=== PATIENT | female | born 1965 | race Caucasian/White ===

== ENCOUNTER 2016-07-30 15:47 | Emergency (ER) | payer OTHER ==
[2016-07-30 15:53] VITALS: PULSE 76; RESP 16
--- NOTE | 2016-07-30 15:58 | EDPHY ---
H & P Stated Complaint: palpitations since last Time Seen by Provider: 07/30/16 15:55 HPI/ROS: CHIEF COMPLAINT: Palpitations. HISTORY OF PRESENT ILLNESS: The patient is a 51-year-old female who presents with intermittent palpitations for the past 5 days. She first noticed the palpitations on while driving but they were mild and have been worsening since then. She feels that her heart is beating harder than usual and is irregular. The episodes can last 3 minutes to an hour. She admits associated nausea and throat tightness. The palpitations are alleviated with exercise. She denies syncope, chest pain, recent sickness, numbness, weakness, paresthesias, fever, chills, shortness of breath, vomiting, diarrhea, urinary complaints, headache, lightheadedness. She has been under a lot of stress lately. REVIEW OF SYSTEMS: Aside from elements discussed in the HPI, a comprehensive 10-point review of systems was reviewed and is negative. PAST MEDICAL HISTORY: C-sections x2. SOCIAL HISTORY: Lives in [place], nonsmoker, social alcohol use. VITAL SIGNS: Reviewed by me GENERAL: Well-developed, well-nourished, resting comfortably in no respiratory distress. HEENT: Atraumatic. Eyes: No icterus, no injection. Mouth: moist mucous membranes. No erythema or lesions. Neck: supple with no adenopathy. LUNGS: Clear to auscultation bilaterally, no wheezes, rhonchi or rales. CARDIAC: Regular rate and rhythm, no rubs, murmurs or gallops. ABDOMEN: Soft, nontender, nondistended, bowel sounds normal. BACK: No CVA tenderness. EXTREMITIES: No trauma. No edema. Range of motion is normal throughout. NEURO: Alert and oriented, grossly nonfocal. SKIN: Warm and dry, no rash. PSYCHIATRIC: Normal mentation, no agitation. Portions of this note were transcribed by a medical record transcriber. I personally performed a history, physical exam, medical decision making, and confirmed accuracy of information the transcribed note. Source: Patient Exam Limitations: No limitations - Personal History LMP (Females 10-55): Post Menopausal Current Tetanus/Diphtheria Vaccine: Yes - Medical/Surgical History Hx Asthma: No Hx Chronic Respiratory Disease: No Hx Diabetes: No Hx Cardiac Disease: No Hx Renal Disease: No Hx Cirrhosis: No Hx Alcoholism: No Hx HIV/AIDS: No Hx Splenectomy or Spleen Trauma: No Other PMH: denies - Social History Smoking Status: Never smoked Constitutional: Initial Vital Signs Temperature (C) 36.5 C 07/30/16 15:52 Heart Rate 76 07/30/16 15:52 Respiratory Rate 16 07/30/16 15:52 Blood Pressure 122/70 H 07/30/16 15:52 O2 Sat (%) 97 07/30/16 15:52 O2 Delivery Mode Room Air Allergies/Adverse Reactions: No Known Allergies Allergy (Verified 07/30/16 15:50) Home Medications: Medication Instructions Recorded NK [No Known Home Meds] 07/30/16 Medical Decision Making - Diagnostics EKG Interpretation: 12-LEAD EKG: Please see the full report in [facility]. My interpretation: Normal sinus rhythm ED Course/Re-evaluation: 51-year-old female with no prior cardiac history presents with intermittent palpitations since . She has no chest pain or shortness of breath. Her exam is normal. She has been placed on a tight cooper. During my exam I did notice 1 PVC on the monitor. An IV was established and labs ordered. EKG, ordered. Labwork unremarkable for acute abnormality. 1655: Consulted with Dr. Whitmore, cardiology. Her office will call the patient to set up Holter Monitoring and provide reevaluation. Precautions provided. Patient comfortable with plan. Differential Diagnosis: Differential diagnoses for the patient's sensation of palpitations was considered including but not limited to sinus tachycardia, PACs, PVCs, SVT, atrial fibrillation, atrial flutter, anxiety, panic attack. - Data Points Laboratory Results: Laboratory Results 07/30/16 16:00 07/30/16 16:00 Medications Given: Discontinued Medications Sodium Chloride (Ns) 1,000 mls @ 0 mls/hr IV ONCE ONE PRN Reason: Wide Open Stop: 07/30/16 16:47 Last Admin: 07/30/16 17:00 Dose: 1,000 mls Departure - Departure Disposition: Home, Routine, Self-Care Clinical Impression: Palpitations Condition: Good Instructions: Palpitations (ED) Additional Instructions: The office of Dr. Whitmore, cardiology, will call you to set up Holter Monitor. You have been provided her telephone number if you do not hear from the office. Return for any serious worsening of condition. Referrals: Christie Saldaña MD [Primary Care Provider] - As per Instructions Bria Whitmore MD [Medical Doctor] - As per Instructions Report Scribed for: Morena Fraser Report Scribed by: Hernandez Squires Date of Report: 07/30/16 Time of Report: 15:56
--- NOTE | 2016-07-30 16:01 | CPEKG ---
Heart Rate: 66 RR Interval: 909 P-R Interval: 140 QRSD Interval: 86 QT Interval: 396 QTC Interval: 415 P [place]: 71 QRS [place]: 67 T Wave [place]: 52 EKG Severity - NORMAL ECG - EKG Impression: SINUS RHYTHM Electronically Signed By: Morena Fraser 31-Jul-2016 00:05:33
[2016-07-30 16:22] LABS: % IMMATURE GRANULYOCYTES 0.4 % (0.0-1.1); ABSOLUTE IMMATURE GRANULOCYTES 0.04 10^3/uL (0.00-0.10); ADD DIFF? NO; ADD MORPH? NO; ADD SCAN? NO; ATYPICAL LYMPHOCYTE FLAG 10 (0-99); FRAGMENT RBC FLAG 0 (0-99); HEMATOCRIT 40.9 % (38.0-47.0); HEMOGLOBIN 13.4 g/dL (12.6-16.3); LEFT SHIFT FLG 0 (0-99); LIPEMIA HEMOLYSIS FLAG 80 (0-99); MEAN CELL HEMOGLOBIN 28.2 pg (27.9-34.1); MEAN CELL HEMOGLOBIN CONCENTR. 32.8 g/dL (32.4-36.7); MEAN CELL VOLUME 86.1 fL (81.5-99.8); MEAN PLATELET VOLUME 10.5 fL (8.7-11.7); PLATELET CLUMPS FLAG 10 (0-99); PLATELET COUNT 271 10^3/uL (150-400); RED BLOOD CELL COUNT 4.75 10^6/uL (4.18-5.33); RED CELL DISTRIBUTION WIDTH 14.1 % (11.5-15.2)
[2016-07-30 16:30] LABS: ANION GAP 13 mEq/L (8-16); CALCIUM 9.4 mg/dL (8.5-10.4); CARBON DIOXIDE 27 mEq/l (22-31); CHLORIDE 102 mEq/L (97-110); CREATININE 1.1 mg/dL (0.6-1.0); GLOMERULAR FILTRATION RATE 52; GLUCOSE 114 mg/dL (70-100); POTASSIUM 3.5 mEq/L (3.5-5.2); SODIUM 142 mEq/L (134-144)
[2016-07-30 16:42] LABS: TROPONIN I < 0.012 ng/mL (0-0.034)
[2016-07-30] MEDS ORDERED: NS 1,000 ML IV ONE (16:46)
[2016-07-30 17:27] VITALS: BP 133/74; TEMP 98.2; O2SAT 96
== END 2016-07-30 17:26 | disposition home or self-care (01) ==
DX: R00.2 Palpitations (principal)

== ENCOUNTER → 2017-03-18 | Outpatient (CLI) | payer OTHER | LOC: FIMAGING 15:41 | PROVIDERS: ATTEND Internal Medicine | DX: Z12.31 Encounter for screening mammogram for malignant neoplasm of breast (principal) | CPT/HCPCS: G0202 ==

== ENCOUNTER → 2018-03-25 | Outpatient (CLI) | payer OTHER | LOC: FIMAGING 09:46 | PROVIDERS: ATTEND Internal Medicine | DX: Z12.31 Encounter for screening mammogram for malignant neoplasm of breast (principal); Z80.3 Family history of malignant neoplasm of breast ==